=== PATIENT | female | born 1955 | race Caucasian/White ===

== ENCOUNTER 2021-09-19 09:48 | Observation (INO) ==
[2021-09-19] MEDS ORDERED: Ondansetron 4 MG/2 ML VIAL IVP ONE (11:55)
[2021-09-19] MEDS ORDERED: 0.9 % Sodium Chloride 1,000 ML IVC ONE ×2 (11:55→15:27)
[2021-09-19 13:21] LABS: Albumin 4.3 g/dL (3.5-5.7); Albumin/Globulin Ratio 1.1 (1.1-2.2); Bilirubin,Direct 0.2 mg/dL (0.0-0.2); Bilirubin,Indirect 0.5 mg/dL (0.0-1.0); Bilirubin,Total 0.7 mg/dL (0.3-1.0); Globulin 3.8 g/dL (2.4-3.5); Total Protein 8.1 g/dL (6.4-8.9)
[2021-09-19 13:24] LABS: Troponin I 0.04 ng/mL (< 0.04)
[2021-09-19] MEDS ORDERED: Isovue-370 500 ML BOTTLE IVP ONE (13:41)
[2021-09-19 14:41] LABS: Basophils % 0.4 %; Eosinophils % 0.2 %; Hematocrit 49.6 % (35.3-44.9); Hemoglobin 16.5 g/dL (11.5-15.4); Immature Granulocytes % 0.6 % (0-4); Lymphocytes # 1.2 K/mcL (0.6-4.6); Lymphocytes % 14.5 %; Mean Corpuscular HGB Conc 33.3 g/dL (31.6-35.5); Mean Corpuscular Hemoglobin 28.9 pg (28.0-33.3); Mean Corpuscular Volume 86.9 fL (83.0-100.0); Mean Platelet Volume 9.7 fL (9.4-12.4); Monocytes # 0.2 K/mcL (0.0-1.3); Monocytes % 2.7 %; Platelet Count 293 K/mcL (140-400); Red Blood Count 5.71 M/mcL (3.82-4.97); Red Cell Distribution Width 14.1 % (11.5-14.5); Segmented Neutrophils % 81.6 %; White Blood Count 8.5 K/mcL (4.3-11.1)
[2021-09-19 14:47] LABS: Calcium 9.8 mg/dL (8.6-10.3); Potassium 3.4 mEq/L (3.5-5.1)
[2021-09-19] MEDS ORDERED: Naloxone 0.4 MG/ML INJ IVP PRN (17:34)
[2021-09-19] MEDS ORDERED: Ondansetron 4 MG/2 ML VIAL IVP PRN (17:34)
[2021-09-19] MEDS ORDERED: Perflutren Lipid Microsphere 1.3 ML in 0.9 % Sodium Chloride 8.7 ML IVP PRN (17:38)
[2021-09-19] MEDS ORDERED: methylPREDNISolone 125 MG/2 ML VIAL IVP ONE (18:00)
[2021-09-19] MEDS ORDERED: cefTRIAXone 2,000 MG in Water for inj. (sterile) 20 ML IVP SCH (18:00)
[2021-09-19] MEDS ORDERED: *HR* Dextrose 50 % in Water (Syg) 50 ML SYRINGE IVP PRN (18:04)
[2021-09-19] MEDS ORDERED: Dextrose Gel 15 GM/37.5 ML TUBE PO PRN ×2 (18:04)
[2021-09-19] MEDS ORDERED: D5% in Water 1,000 ML IVC PRN (18:04)
[2021-09-19 18:13] LABS: Influenza A PCR Negative (Negative); Influenza B PCR Negative (Negative); Resp. Syncytial Virus PCR Negative (Negative)
[2021-09-19 18:28] LABS: SARS-CoV-2 by PCR (In House) Negative (Negative)
[2021-09-19 18:42] LABS: Magnesium 2.4 mg/dL (1.6-2.6)
[2021-09-19 18:43] LABS: Troponin I 0.03 ng/mL (< 0.04)
[2021-09-19 19:37] LABS: Estimated Average Glucose 140 mg/dl; Hemoglobin A1C 6.5 %
[2021-09-19] MEDS: Aspirin 81 MG TAB.CHEW PO SCH (20:27)
[2021-09-19] MEDS: cefTRIAXone 1,000 MG in 0.9 % Sodium Chloride Mini Bag 100 ML IVP SCH (20:28)
[2021-09-19] MEDS: Azithromycin 500 MG in D5% in Water 250 ML IVPB SCH (20:29)
[2021-09-19] MEDS: *HR* Heparin 5,000 UNIT/ML VIAL SQ SCH (22:21)
[2021-09-19] MEDS: MethylPREDNISolone 40 MG/ML VIAL IVP SCH (22:43)
[2021-09-20 00:29] LABS: Basophils % 0.4 %; Eosinophils % 0.6 %; Hematocrit 41.1 % (35.3-44.9); Immature Granulocytes % 0.7 % (0-4); Lymphocytes # 1.4 K/mcL (0.6-4.6); Lymphocytes % 19.6 %; Mean Corpuscular HGB Conc 35.3 g/dL (31.6-35.5); Mean Corpuscular Hemoglobin 30.1 pg (28.0-33.3); Mean Corpuscular Volume 85.4 fL (83.0-100.0); Mean Platelet Volume 9.3 fL (9.4-12.4); Monocytes # 0.3 K/mcL (0.0-1.3); Monocytes % 4.9 %; Neutrophils # 5.1 K/mcL (1.6-8.9); Platelet Count 255 K/mcL (140-400); Red Blood Count 4.81 M/mcL (3.82-4.97); Red Cell Distribution Width 13.9 % (11.5-14.5); Segmented Neutrophils % 73.8 %; White Blood Count 6.9 K/mcL (4.3-11.1)
[2021-09-20 00:39] LABS: Hemoglobin 14.5 g/dL (11.5-15.4)
[2021-09-20 00:43] LABS: BUN/Creatinine Ratio 27 (6-26); Blood Urea Nitrogen 23 mg/dL (8-23); Calcium 8.8 mg/dL (8.6-10.3); Carbon Dioxide 16 mEq/L (23-29); Chloride 100 mEq/L (98-107); Chol/HDL Ratio 5.4 (0-4.9); Cholesterol 177 mg/dL (< 200); Glucose 107 mg/dL (70-105); HDL Cholesterol 33 mg/dL (40-59); LDL Cholesterol,Calculated 124 mg/dL (< 100); Osmolality,Calculated 272 (280-300); Potassium 3.7 mEq/L (3.5-5.1); Sodium 129 mEq/L (136-145); Triglycerides 100 mg/dL (< 150); eGFR For African Americans > 60 (> 60); eGFR For Non-African Americans > 60 (> 60)
[2021-09-20 01:17] LABS: Bilirubin,Urine Negative (Negative); Blood,Urine Moderate (Negative); Clarity,Urine Clear (Clear); Color,Urine Light-Yellow (Yellow); Glucose,Urine (UA) Normal (Normal); Ketones,Urine 40 mg/dL (Negative); Leukocyte Esterase,Urine Negative (Negative); Nitrite,Urine Negative (Negative); Protein,Urine Trace mg/dL (Neg-Trace); RBC,Urine 15-30 per hpf (0-3); Specific Gravity,Urine > 1.030 (1.010-1.025); Urobilinogen,Urine Normal (Normal); WBC,Urine 0-3 per hpf (0-3)
[2021-09-20] MEDS: *HR* Heparin 5,000 UNIT/ML VIAL SQ SCH ×3 (04:44→20:33)
[2021-09-20] MEDS: Insulin LISPRO 300 UNITS/3 ML VIAL SUBQ SCH ×3 (08:17→16:36)
[2021-09-20] MEDS: Aspirin 81 MG TAB.CHEW PO SCH (08:23)
[2021-09-20] MEDS: MethylPREDNISolone 40 MG/ML VIAL IVP SCH ×2 (08:24→17:58)
[2021-09-20] MEDS: Pantoprazole 40 MG VIAL IVP SCH (08:24)
[2021-09-20] MEDS: Azithromycin 500 MG in D5% in Water 250 ML IVPB SCH (17:59)
[2021-09-20] MEDS: cefTRIAXone 1,000 MG in 0.9 % Sodium Chloride Mini Bag 100 ML IVP SCH (17:59)
[2021-09-21] MEDS: *HR* Heparin 5,000 UNIT/ML VIAL SQ SCH ×4 (04:17→21:05)
[2021-09-21] MEDS: MethylPREDNISolone 40 MG/ML VIAL IVP SCH (04:19)
[2021-09-21] MEDS: Insulin LISPRO 300 UNITS/3 ML VIAL SUBQ SCH ×3 (07:17→16:32)
[2021-09-21 07:19] LABS: Hematocrit 44.9 % (35.3-44.9); Hemoglobin 15.7 g/dL (11.5-15.4); Immature Granulocytes % 0.5 % (0-4); Lymphocytes % 12.1 %; Mean Corpuscular Volume 85.7 fL (83.0-100.0); Mean Platelet Volume 9.5 fL (9.4-12.4); Monocytes # 0.3 K/mcL (0.0-1.3); Monocytes % 3.3 %; Platelet Count 293 K/mcL (140-400); Red Blood Count 5.24 M/mcL (3.82-4.97); Red Cell Distribution Width 14.1 % (11.5-14.5); Segmented Neutrophils % 84.1 %; White Blood Count 8.3 K/mcL (4.3-11.1)
[2021-09-21 07:33] LABS: BUN/Creatinine Ratio 27 (6-26); Blood Urea Nitrogen 25 mg/dL (8-23); Calcium 9.2 mg/dL (8.6-10.3); Carbon Dioxide 20 mEq/L (23-29); Chloride 99 mEq/L (98-107); Glucose 135 mg/dL (70-105); Osmolality,Calculated 274 (280-300); Potassium 3.8 mEq/L (3.5-5.1); Sodium 129 mEq/L (136-145); eGFR For African Americans > 60 (> 60); eGFR For Non-African Americans 59 (> 60)
[2021-09-21] MEDS: Pantoprazole 40 MG VIAL IVP SCH (07:49)
[2021-09-21] MEDS: Aspirin 81 MG TAB.CHEW PO SCH (07:49)
[2021-09-21] MEDS ORDERED: Fluticasone Propionate Nasal 50 MCG/SPRAY BOTTLE NS PRN (14:56)
[2021-09-21] MEDS: Azithromycin 250 MG TABLET PO SCH (17:29)
[2021-09-21] MEDS ORDERED: cefTRIAXone 1,000 MG in 0.9 % Sodium Chloride Mini Bag 100 ML IVPB SCH (17:45)
[2021-09-22 06:51] LABS: Basophils % 0.1 %; Eosinophils # 0.1 K/mcL (0.0-0.6); Eosinophils % 0.7 %; Hematocrit 43.8 % (35.3-44.9); Hemoglobin 15.2 g/dL (11.5-15.4); Immature Granulocytes % 0.3 % (0-4); Lymphocytes # 2.9 K/mcL (0.6-4.6); Lymphocytes % 28.9 %; Mean Corpuscular HGB Conc 34.7 g/dL (31.6-35.5); Mean Corpuscular Hemoglobin 29.3 pg (28.0-33.3); Mean Corpuscular Volume 84.4 fL (83.0-100.0); Mean Platelet Volume 9.5 fL (9.4-12.4); Monocytes # 0.8 K/mcL (0.0-1.3); Monocytes % 7.8 %; Neutrophils # 6.2 K/mcL (1.6-8.9); Platelet Count 251 K/mcL (140-400); Red Blood Count 5.19 M/mcL (3.82-4.97); Red Cell Distribution Width 14.1 % (11.5-14.5); Segmented Neutrophils % 62.2 %
[2021-09-22 07:07] LABS: BUN/Creatinine Ratio 34 (6-26); Blood Urea Nitrogen 30 mg/dL (8-23); Calcium 8.9 mg/dL (8.6-10.3); Carbon Dioxide 19 mEq/L (23-29); Chloride 101 mEq/L (98-107); Glucose 100 mg/dL (70-105); Osmolality,Calculated 274 (280-300); Potassium 3.1 mEq/L (3.5-5.1); Sodium 129 mEq/L (136-145); eGFR For African Americans > 60 (> 60); eGFR For Non-African Americans > 60 (> 60)
[2021-09-22] MEDS: Aspirin 81 MG TAB.CHEW PO SCH (08:22)
[2021-09-22] MEDS: Insulin LISPRO 300 UNITS/3 ML VIAL SUBQ SCH ×3 (08:22→14:50)
[2021-09-22] MEDS ORDERED: predniSONE 20 MG TABLET PO SCH (09:00)
[2021-09-22 10:53] VITALS: BP 126/86; PULSE 71; TEMP 97.5; O2SAT 99
[2021-09-22] MEDS: Azithromycin 250 MG TABLET PO SCH (14:49)
[2021-09-22] MEDS: *HR* Heparin 5,000 UNIT/ML VIAL SQ SCH (14:50)
[2021-09-22] MEDS ORDERED: Cefdinir 300 MG CAPSULE PO SCH (21:00)
== END 2021-09-22 18:15 | disposition home or self-care (01) ==
LOC: 3BNU 09:48 → EMEROOARM 09:48 → SUATTDRO 17:59 → 3BNU 20:00
PROVIDERS: ADMIT Student in an Organized Health Care Education/Training Program; ATTEND General Practice

== ENCOUNTER 2021-09-27 12:34 | Inpatient (IN) ==
[2021-09-27 13:06] LABS: Basophils % 0.1 %; Immature Granulocytes % 1.1 % (0-4); Mean Platelet Volume 11.4 fL (9.4-12.4)
[2021-09-27 13:08] LABS: Hematocrit 48.3 % (35.3-44.9); Lymphocytes # 1.1 K/mcL (0.6-4.6); Lymphocytes % 14.6 %; Mean Corpuscular HGB Conc 35.2 g/dL (31.6-35.5); Mean Corpuscular Hemoglobin 29.5 pg (28.0-33.3); Mean Corpuscular Volume 83.7 fL (83.0-100.0); Monocytes # 0.5 K/mcL (0.0-1.3); Monocytes % 6.5 %; Neutrophils # 5.7 K/mcL (1.6-8.9); Platelet Count 82 K/mcL (140-400); Red Blood Count 5.77 M/mcL (3.82-4.97); Red Cell Distribution Width 14.8 % (11.5-14.5); Segmented Neutrophils % 77.7 %; White Blood Count 7.3 K/mcL (4.3-11.1)
[2021-09-27 13:18] LABS: Activated Partial Thrombo Time 47.4 Seconds (26.0-36.0)
[2021-09-27 13:23] LABS: Prothrombin Time 67.5 Seconds (9.4-12.1)
[2021-09-27 13:24] LABS: INR 6.1
[2021-09-27 13:25] LABS: Bacteria,Urine Few per hpf (None-Few); Bilirubin,Urine Negative (Negative); Blood,Urine Moderate (Negative); Clarity,Urine Clear (Clear); Color,Urine Yellow (Yellow); Glucose,Urine (UA) Normal (Normal); Hyaline Casts,Urine Few per lpf (None Seen); Ketones,Urine 20 mg/dL (Negative); Leukocyte Esterase,Urine Negative (Negative); Mucus,Urine Few per lpf (None-Few); Nitrite,Urine Negative (Negative); Protein,Urine Trace mg/dL (Neg-Trace); Specific Gravity,Urine 1.029 (1.010-1.025); Urobilinogen,Urine Normal (Normal)
[2021-09-27 13:26] LABS: Alanine Aminotransferase 10 Units/L (7-52); Albumin 3.4 g/dL (3.5-5.7); Albumin/Globulin Ratio 1.4 (1.1-2.2); Alkaline Phosphatase 77 Units/L (34-104); Aspartate Amino Transferase 21 Units/L (13-39); BUN/Creatinine Ratio 32 (6-26); Bilirubin,Direct 0.3 mg/dL (0.0-0.2); Bilirubin,Indirect 0.8 mg/dL (0.0-1.0); Bilirubin,Total 1.1 mg/dL (0.3-1.0); Blood Urea Nitrogen 40 mg/dL (8-23); Calcium 8.7 mg/dL (8.6-10.3); Carbon Dioxide 12 mEq/L (23-29); Chloride 106 mEq/L (98-107); Ethanol < 10 mg/dL (Less than 10); Globulin 2.5 g/dL (2.4-3.5); Glucose 160 mg/dL (70-105); Osmolality,Calculated 291 (280-300); Sodium 134 mEq/L (136-145); Total Protein 5.9 g/dL (6.4-8.9); eGFR For African Americans 52 (> 60); eGFR For Non-African Americans 43 (> 60)
[2021-09-27 13:37] LABS: Amphetamine Screen,Urine Negative ng/mL (Cutoff=1000); Barbiturate Screen,Urine Negative ng/mL (Cutoff=200); Benzodiazepines Screen,Urine Negative ng/mL (Cutoff=200); Cannabinoid Screen,Urine Negative ng/mL (Cutoff = 50); Cocaine Screen,Urine Negative ng/mL (Cutoff= 300); Opiate Screen,Urine Negative ng/mL (Cutoff=300); Phencyclidine Screen,Urine Negative ng/mL (Cutoff=25)
[2021-09-27] MEDS ORDERED: Isovue-370 500 ML BOTTLE IVP ONE (13:46)
[2021-09-27] MEDS ORDERED: 0.9 % Sodium Chloride 1,000 ML IVC ONE (16:44)
[2021-09-27 17:42] LABS: Acetaminophen < 10 mcg/mL (10-20); Lipase 40 Units/L (11-82); Salicylate < 2.5 mg/dL (15.0-30.0)
[2021-09-27] MEDS ORDERED: Naloxone 0.4 MG/ML INJ IVP PRN (18:10)
[2021-09-27 18:22] LABS: Chloride,Urine 23 mEq/L; Creatinine,Urine 182 mg/dL; Potassium,Urine 65.8 mEq/L; Sodium, Urine 30.7 mEq/L
[2021-09-27 19:08] LABS: Beta-Hydroxybutyric Acid 1.78 mmol/L (0.02-0.27)
[2021-09-27 19:21] LABS: Procalcitonin 0.26 ng/mL (0.00-0.15)
[2021-09-27 21:16] LABS: VBG HCO3 15 mEq/L (21-27); VBG PCO2 30 mmHg (41-51); VBG PH 7.32 pH Units (7.32-7.42); VBG PO2 36 mmHg (25-50)
[2021-09-27] MEDS: Thiamine (B-1) 100 MG in 0.9 % Sodium Chloride 50 ML IVPB SCH (21:20)
[2021-09-27 21:49] LABS: INR 7.2; Prothrombin Time 78.5 Seconds (9.4-12.1)
[2021-09-27] MEDS: Ringers Solution, Lactated 1,000 ML IVC ONE (22:30)
[2021-09-27] MEDS: D5% in 0.45% NACL 1,000 ML IVC SCH (23:39)
[2021-09-28] MEDS ORDERED: Dextrose Gel 15 GM/37.5 ML TUBE PO PRN ×2 (00:53)
[2021-09-28] MEDS ORDERED: D5% in Water 1,000 ML IVC PRN (00:53)
[2021-09-28] MEDS ORDERED: *HR* Dextrose 50 % in Water (Syg) 50 ML SYRINGE IVP PRN (00:53)
[2021-09-28] MEDS: Piperacillin/Tazobactam 3.375 GM in 0.9 % Sodium Chloride Mini Bag 100 ML IVPB SCH ×3 (00:57→16:03)
[2021-09-28 01:44] LABS: Acetaminophen < 10 mcg/mL (10-20); Salicylate < 2.5 mg/dL (15.0-30.0)
[2021-09-28 02:10] LABS: Folate 3.9 ng/mL (3.0-16.0)
[2021-09-28 04:07] LABS: ABG Base Excess -7 mEq/L (-2 to 3); ABG HCO3 17 mEq/L (21-27); ABG Oxygen Saturation 97 % (95-98); ABG PCO2 27 mmHg (35-45); ABG PH 7.39 pH Units (7.32-7.45); ABG PO2 88 mmHg (85-104); ABG TCO2 17 mEq/L (20-26)
[2021-09-28 06:04] LABS: Basophils % 0.2 %; Hematocrit 43.3 % (35.3-44.9); Red Cell Distribution Width 15.3 % (11.5-14.5)
[2021-09-28 06:06] LABS: Hemoglobin 14.5 g/dL (11.5-15.4); Immature Granulocytes % 0.9 % (0-4); Immature Platelets 6.1 % (1.1-6.1); Lymphocytes # 1.3 K/mcL (0.6-4.6); Lymphocytes % 14.6 %; Mean Corpuscular HGB Conc 33.5 g/dL (31.6-35.5); Mean Corpuscular Hemoglobin 29.6 pg (28.0-33.3); Mean Corpuscular Volume 88.4 fL (83.0-100.0); Mean Platelet Volume 11.5 fL (9.4-12.4); Monocytes # 0.5 K/mcL (0.0-1.3); Monocytes % 5.4 %; Neutrophils # 7.2 K/mcL (1.6-8.9); Platelet Count 70 K/mcL (140-400); Segmented Neutrophils % 78.9 %; White Blood Count 9.1 K/mcL (4.3-11.1)
[2021-09-28 06:20] LABS: Activated Partial Thrombo Time 49.4 Seconds (26.0-36.0)
[2021-09-28 06:28] LABS: Albumin/Globulin Ratio 1.6 (1.1-2.2); Bilirubin,Total 0.8 mg/dL (0.3-1.0); Calcium 8.1 mg/dL (8.6-10.3); Globulin 1.9 g/dL (2.4-3.5); Magnesium 2.6 mg/dL (1.6-2.6); Phosphorous 4.4 mg/dL (2.7-4.5); Potassium 4.2 mEq/L (3.5-5.1); Total Protein 4.9 g/dL (6.4-8.9)
[2021-09-28 06:38] LABS: INR 6.8
[2021-09-28 06:39] LABS: Prothrombin Time 75.2 Seconds (9.4-12.1)
[2021-09-28] MEDS ORDERED: *HR* Phytonadione 10 MG/ML AMPUL SQ ONE (08:02)
[2021-09-28] MEDS: Thiamine (B-1) 100 MG in 0.9 % Sodium Chloride 50 ML IVPB SCH (09:28)
[2021-09-28] MEDS ORDERED: Ringers Solution, Lactated 1,000 ML IVC ONE (10:38)
[2021-09-28] MEDS ORDERED: Ringers Solution, Lactated 1,000 ML ONE (12:43)
[2021-09-28] MEDS: D5% in 0.45% NACL 1,000 ML IVC SCH ×3 (12:48→21:14)
[2021-09-28] MEDS: Ringers Solution, Lactated 1,000 ML IVC ONE (12:58)
[2021-09-29] MEDS: Piperacillin/Tazobactam 3.375 GM in 0.9 % Sodium Chloride Mini Bag 100 ML IVPB SCH ×3 (00:22→11:00)
[2021-09-29 05:08] LABS: Eosinophils % 0.2 %; Hematocrit 31.3 % (35.3-44.9); Hemoglobin 10.1 g/dL (11.5-15.4); Immature Granulocytes % 0.9 % (0-4); Immature Platelets 6.5 % (1.1-6.1); Lymphocytes # 1.9 K/mcL (0.6-4.6); Lymphocytes % 28.4 %; Mean Corpuscular HGB Conc 32.3 g/dL (31.6-35.5); Mean Corpuscular Hemoglobin 28.9 pg (28.0-33.3); Mean Corpuscular Volume 89.4 fL (83.0-100.0); Monocytes # 0.4 K/mcL (0.0-1.3); Monocytes % 5.8 %; Neutrophils # 4.3 K/mcL (1.6-8.9); Segmented Neutrophils % 64.7 %; White Blood Count 6.6 K/mcL (4.3-11.1)
[2021-09-29 05:18] LABS: Platelet Count 44 K/mcL (140-400)
[2021-09-29 05:22] LABS: Activated Partial Thrombo Time 27.6 Seconds (26.0-36.0)
[2021-09-29 05:24] LABS: Prothrombin Time 13.9 Seconds (9.4-12.1)
[2021-09-29 05:25] LABS: INR 1.2
[2021-09-29 05:53] LABS: Albumin 2.3 g/dL (3.5-5.7); Albumin/Globulin Ratio 1.3 (1.1-2.2); Bilirubin,Total 0.6 mg/dL (0.3-1.0); Calcium 7.1 mg/dL (8.6-10.3); Globulin 1.8 g/dL (2.4-3.5); Magnesium 2.1 mg/dL (1.6-2.6); Phosphorous 2.5 mg/dL (2.7-4.5); Potassium 3.5 mEq/L (3.5-5.1); Total Protein 4.1 g/dL (6.4-8.9)
[2021-09-29] MEDS: D5% in 0.45% NACL 1,000 ML IVC SCH (06:01)
[2021-09-29] MEDS ORDERED: Sodium Bicarbonate 75 MEQ in D5% in Water 1,000 ML IVC SCH (07:30)
[2021-09-29] MEDS ORDERED: Potassium Chloride Elixir 20 MEQ/15 ML UDC PO ONE (09:40)
[2021-09-29 10:24] LABS: VBG HCO3 20 mEq/L (21-27); VBG PCO2 32 mmHg (41-51); VBG PO2 191 mmHg (25-50)
[2021-09-29] MEDS: Thiamine (B-1) 100 MG in 0.9 % Sodium Chloride 50 ML IVPB SCH (12:11)
[2021-09-29] MEDS: Folic Acid 1 MG TABLET PO SCH (12:11)
[2021-09-29] MEDS: Multivit/Ca/Min/Fe/FA 1 TAB TABLET PO SCH (12:11)
[2021-09-29] MEDS: Sodium Bicarbonate 150 MEQ in D5% in Water 1,000 ML IVC SCH (14:57)
[2021-09-29 20:23] LABS: Hepatitis B Surface Antigen Nonreactive (Nonreactive)
[2021-09-29 20:52] LABS: Hepatitis B Core IgM Nonreactive (Nonreactive)
[2021-09-29 20:53] LABS: Hepatitis A Antibody IgM Nonreactive (Nonreactive)
[2021-09-30 02:27] LABS: Eosinophils % 0.4 %; Hemoglobin 10.6 g/dL (11.5-15.4); Mean Corpuscular Hemoglobin 29.4 pg (28.0-33.3)
[2021-09-30 02:29] LABS: Basophils % 0.2 %; Hematocrit 31.6 % (35.3-44.9); Immature Granulocytes % 0.6 % (0-4); Immature Platelets 7.4 % (1.1-6.1); Lymphocytes # 1.3 K/mcL (0.6-4.6); Lymphocytes % 25.4 %; Mean Corpuscular HGB Conc 33.5 g/dL (31.6-35.5); Mean Corpuscular Volume 87.8 fL (83.0-100.0); Mean Platelet Volume 12.7 fL (9.4-12.4); Monocytes # 0.3 K/mcL (0.0-1.3); Monocytes % 5.9 %; Neutrophils # 3.4 K/mcL (1.6-8.9); Red Cell Distribution Width 14.5 % (11.5-14.5); Segmented Neutrophils % 67.5 %; White Blood Count 5.1 K/mcL (4.3-11.1)
[2021-09-30 02:30] LABS: Platelet Count 41 K/mcL (140-400)
[2021-09-30 02:45] LABS: Activated Partial Thrombo Time 27.2 Seconds (26.0-36.0); Alanine Aminotransferase 7 Units/L (7-52); Albumin 2.7 g/dL (3.5-5.7); Albumin/Globulin Ratio 1.4 (1.1-2.2); Alkaline Phosphatase 51 Units/L (34-104); Aspartate Amino Transferase 21 Units/L (13-39); BUN/Creatinine Ratio 19 (6-26); Bilirubin,Total 0.7 mg/dL (0.3-1.0); Blood Urea Nitrogen 15 mg/dL (8-23); Calcium 7.4 mg/dL (8.6-10.3); Carbon Dioxide 23 mEq/L (23-29); Chloride 109 mEq/L (98-107); Globulin 1.9 g/dL (2.4-3.5); Glucose 87 mg/dL (70-105); INR 1.1; Magnesium 1.8 mg/dL (1.6-2.6); Osmolality,Calculated 280 (280-300); Phosphorous 2.2 mg/dL (2.7-4.5); Potassium 3.4 mEq/L (3.5-5.1); Prothrombin Time 12.5 Seconds (9.4-12.1); Sodium 135 mEq/L (136-145); Total Protein 4.6 g/dL (6.4-8.9); eGFR For African Americans > 60 (> 60); eGFR For Non-African Americans > 60 (> 60)
[2021-09-30] MEDS: Sodium Bicarbonate 150 MEQ in D5% in Water 1,000 ML IVC SCH ×2 (06:59→08:23)
[2021-09-30] MEDS: Folic Acid 1 MG TABLET PO SCH (08:59)
[2021-09-30] MEDS: Multivit/Ca/Min/Fe/FA 1 TAB TABLET PO SCH (08:59)
[2021-09-30 09:44] LABS: Immature Reticulocyte % 11.4 % (11.0-38.0); Retculocyte # 0.01 M/mcL (0.05-0.10); Reticulocyte % 0.4 % (1.6-2.8)
[2021-09-30] MEDS: Thiamine (B-1) 100 MG in 0.9 % Sodium Chloride 50 ML IVPB SCH (11:12)
[2021-09-30] MEDS: Ergocalciferol (VIT D2) 50,000 UNIT (1.25MG) CAP PO SCH (13:41)
[2021-10-01] MEDS: Sodium Bicarbonate 150 MEQ in D5% in Water 1,000 ML IVC SCH (02:19)
[2021-10-01] MEDS: Thiamine (B-1) 100 MG TABLET PO SCH (08:29)
[2021-10-01] MEDS: Folic Acid 1 MG TABLET PO SCH (08:29)
[2021-10-01] MEDS: Multivit/Ca/Min/Fe/FA 1 TAB TABLET PO SCH (08:29)
[2021-10-01 10:00] LABS: Basophils % 0.3 %; Immature Granulocytes % 1.1 % (0-4)
[2021-10-01 10:02] LABS: Eosinophils % 0.5 %; Hematocrit 33.1 % (35.3-44.9); Hemoglobin 11.2 g/dL (11.5-15.4); Immature Platelets 11.3 % (1.1-6.1); Lymphocytes # 1.2 K/mcL (0.6-4.6); Lymphocytes % 33.6 %; Mean Corpuscular HGB Conc 33.8 g/dL (31.6-35.5); Mean Corpuscular Volume 85.8 fL (83.0-100.0); Mean Platelet Volume 10.8 fL (9.4-12.4); Monocytes # 0.3 K/mcL (0.0-1.3); Monocytes % 7.9 %; Neutrophils # 2.1 K/mcL (1.6-8.9); Red Blood Count 3.86 M/mcL (3.82-4.97); Red Cell Distribution Width 14.1 % (11.5-14.5); Segmented Neutrophils % 56.6 %; White Blood Count 3.7 K/mcL (4.3-11.1)
[2021-10-01 10:04] LABS: Platelet Count 46 K/mcL (140-400)
[2021-10-01 10:18] LABS: BUN/Creatinine Ratio 7 (6-26); Blood Urea Nitrogen 5 mg/dL (8-23); Calcium 8.1 mg/dL (8.6-10.3); Carbon Dioxide 28 mEq/L (23-29); Chloride 97 mEq/L (98-107); Glucose 101 mg/dL (70-105); Osmolality,Calculated 269 (280-300); Potassium 3.2 mEq/L (3.5-5.1); Sodium 131 mEq/L (136-145); eGFR For African Americans > 60 (> 60); eGFR For Non-African Americans > 60 (> 60)
[2021-10-01] MEDS: 0.9 % Sodium Chloride 1,000 ML IVC SCH (12:00)
[2021-10-01] MEDS: Potassium Effervescent 25 MEQ TABLET.EFF PO SCH ×2 (16:45→20:02)
[2021-10-02] MEDS: 0.9 % Sodium Chloride 1,000 ML IVC SCH ×2 (00:24→13:41)
[2021-10-02] MEDS: Folic Acid 1 MG TABLET PO SCH (10:12)
[2021-10-02] MEDS: Multivit/Ca/Min/Fe/FA 1 TAB TABLET PO SCH (10:13)
[2021-10-02] MEDS: Thiamine (B-1) 100 MG TABLET PO SCH (10:13)
[2021-10-02 10:58] LABS: Immature Granulocytes % 1.1 % (0-4)
[2021-10-02 11:00] LABS: Basophils % 0.3 %; Eosinophils # 0.1 K/mcL (0.0-0.6); Eosinophils % 1.9 %; Hematocrit 32.7 % (35.3-44.9); Lymphocytes # 1.2 K/mcL (0.6-4.6); Lymphocytes % 33.2 %; Mean Corpuscular HGB Conc 33.6 g/dL (31.6-35.5); Mean Corpuscular Hemoglobin 29.4 pg (28.0-33.3); Mean Corpuscular Volume 87.4 fL (83.0-100.0); Mean Platelet Volume 11.7 fL (9.4-12.4); Monocytes # 0.4 K/mcL (0.0-1.3); Monocytes % 9.9 %; Red Blood Count 3.74 M/mcL (3.82-4.97); Red Cell Distribution Width 14.5 % (11.5-14.5); Segmented Neutrophils % 53.6 %; White Blood Count 3.7 K/mcL (4.3-11.1)
[2021-10-02 11:02] LABS: Platelet Count 57 K/mcL (140-400)
[2021-10-02 11:25] LABS: BUN/Creatinine Ratio 7 (6-26); Blood Urea Nitrogen 5 mg/dL (8-23); Calcium 8.4 mg/dL (8.6-10.3); Carbon Dioxide 25 mEq/L (23-29); Chloride 103 mEq/L (98-107); Glucose 89 mg/dL (70-105); Magnesium 1.7 mg/dL (1.6-2.6); Osmolality,Calculated 277 (280-300); Potassium 3.7 mEq/L (3.5-5.1); Sodium 135 mEq/L (136-145); eGFR For African Americans > 60 (> 60); eGFR For Non-African Americans > 60 (> 60)
[2021-10-03] MEDS: 0.9 % Sodium Chloride 1,000 ML IVC SCH ×2 (02:32→16:08)
[2021-10-03 06:28] LABS: Eosinophils % 2.4 %; Mean Corpuscular Volume 87.4 fL (83.0-100.0)
[2021-10-03 06:30] LABS: Basophils % 0.5 %; Eosinophils # 0.1 K/mcL (0.0-0.6); Hematocrit 30.4 % (35.3-44.9); Hemoglobin 10.5 g/dL (11.5-15.4); Immature Granulocytes % 0.7 % (0-4); Immature Platelets 7.8 % (1.1-6.1); Lymphocytes # 1.5 K/mcL (0.6-4.6); Mean Corpuscular HGB Conc 34.5 g/dL (31.6-35.5); Mean Corpuscular Hemoglobin 30.2 pg (28.0-33.3); Mean Platelet Volume 11.9 fL (9.4-12.4); Monocytes # 0.4 K/mcL (0.0-1.3); Monocytes % 8.8 %; Neutrophils # 2.1 K/mcL (1.6-8.9); Red Blood Count 3.48 M/mcL (3.82-4.97); Red Cell Distribution Width 14.4 % (11.5-14.5); Segmented Neutrophils % 51.6 %; White Blood Count 4.1 K/mcL (4.3-11.1)
[2021-10-03 06:42] LABS: Platelet Count 72 K/mcL (140-400)
[2021-10-03 06:53] LABS: BUN/Creatinine Ratio 7 (6-26); Blood Urea Nitrogen 5 mg/dL (8-23); Calcium 8.1 mg/dL (8.6-10.3); Carbon Dioxide 23 mEq/L (23-29); Chloride 105 mEq/L (98-107); Glucose 78 mg/dL (70-105); Osmolality,Calculated 276 (280-300); Potassium 3.5 mEq/L (3.5-5.1); Sodium 135 mEq/L (136-145); eGFR For African Americans > 60 (> 60); eGFR For Non-African Americans > 60 (> 60)
[2021-10-03] MEDS: Magnesium Oxide 400 MG TABLET PO SCH ×2 (08:39→20:39)
[2021-10-03] MEDS: Multivit/Ca/Min/Fe/FA 1 TAB TABLET PO SCH (08:40)
[2021-10-03] MEDS: Thiamine (B-1) 100 MG TABLET PO SCH (08:40)
[2021-10-03] MEDS: Folic Acid 1 MG TABLET PO SCH (08:41)
[2021-10-03] MEDS ORDERED: Potassium Effervescent 25 MEQ TABLET.EFF PO ONE (14:50)
[2021-10-04] MEDS: 0.9 % Sodium Chloride 1,000 ML IVC SCH (02:53)
[2021-10-04] MEDS: Thiamine (B-1) 100 MG TABLET PO SCH (08:19)
[2021-10-04] MEDS: Cyanocobalamin (B-12) 1,000 MCG TABLET PO SCH (08:19)
[2021-10-04] MEDS: Folic Acid 1 MG TABLET PO SCH (08:19)
[2021-10-04] MEDS: Magnesium Oxide 400 MG TABLET PO SCH ×2 (08:20→19:33)
[2021-10-04] MEDS: Multivit/Ca/Min/Fe/FA 1 TAB TABLET PO SCH (08:20)
[2021-10-05 04:51] LABS: Alanine Aminotransferase 10 Units/L (7-52); Albumin 3.2 g/dL (3.5-5.7); Albumin/Globulin Ratio 1.3 (1.1-2.2); Alkaline Phosphatase 57 Units/L (34-104); Aspartate Amino Transferase 20 Units/L (13-39); BUN/Creatinine Ratio 7 (6-26); Bilirubin,Total 0.8 mg/dL (0.3-1.0); Blood Urea Nitrogen 5 mg/dL (8-23); Calcium 8.4 mg/dL (8.6-10.3); Carbon Dioxide 21 mEq/L (23-29); Chloride 105 mEq/L (98-107); Globulin 2.5 g/dL (2.4-3.5); Glucose 82 mg/dL (70-105); Magnesium 1.8 mg/dL (1.6-2.6); Osmolality,Calculated 276 (280-300); Potassium 3.6 mEq/L (3.5-5.1); Sodium 135 mEq/L (136-145); Total Protein 5.7 g/dL (6.4-8.9); eGFR For African Americans > 60 (> 60); eGFR For Non-African Americans > 60 (> 60)
[2021-10-05 05:16] LABS: INR 1.2; Prothrombin Time 13.1 Seconds (9.4-12.1)
[2021-10-05] MEDS: 0.9 % Sodium Chloride 1,000 ML IVC SCH ×2 (05:32)
[2021-10-05 06:42] LABS: Basophils % 0.5 %; Eosinophils # 0.1 K/mcL (0.0-0.6); Eosinophils % 1.6 %; Hematocrit 31.1 % (35.3-44.9); Hemoglobin 10.3 g/dL (11.5-15.4); Immature Granulocytes % 0.7 % (0-4); Lymphocytes # 1.2 K/mcL (0.6-4.6); Lymphocytes % 28.4 %; Mean Corpuscular HGB Conc 33.1 g/dL (31.6-35.5); Mean Corpuscular Hemoglobin 28.5 pg (28.0-33.3); Mean Corpuscular Volume 86.1 fL (83.0-100.0); Mean Platelet Volume 10.3 fL (9.4-12.4); Monocytes # 0.4 K/mcL (0.0-1.3); Monocytes % 8.5 %; Neutrophils # 2.6 K/mcL (1.6-8.9); Platelet Count 128 K/mcL (140-400); Red Blood Count 3.61 M/mcL (3.82-4.97); Red Cell Distribution Width 14.4 % (11.5-14.5); Segmented Neutrophils % 60.3 %; White Blood Count 4.4 K/mcL (4.3-11.1)
[2021-10-05] MEDS: Cyanocobalamin (B-12) 1,000 MCG TABLET PO SCH ×2 (08:14→08:30)
[2021-10-05] MEDS: Multivit/Ca/Min/Fe/FA 1 TAB TABLET PO SCH ×2 (08:14→08:30)
[2021-10-05] MEDS: Thiamine (B-1) 100 MG TABLET PO SCH ×2 (08:14→08:30)
[2021-10-05] MEDS: Magnesium Oxide 400 MG TABLET PO SCH ×3 (08:14→20:20)
[2021-10-05] MEDS: Folic Acid 1 MG TABLET PO SCH ×2 (08:14→08:30)
[2021-10-05] MEDS: QUEtiapine Fumarate 25 MG TABLET PO SCH (20:20)
[2021-10-06] MEDS: 0.9 % Sodium Chloride 1,000 ML IVC SCH ×2 (03:47→18:15)
[2021-10-06] MEDS ORDERED: Fluticasone Propionate Nasal 50 MCG/SPRAY BOTTLE NS PRN (07:11)
[2021-10-06] MEDS: Cyanocobalamin (B-12) 1,000 MCG TABLET PO SCH (10:24)
[2021-10-06] MEDS: Magnesium Oxide 400 MG TABLET PO SCH ×2 (10:24→19:57)
[2021-10-06] MEDS: Multivit/Ca/Min/Fe/FA 1 TAB TABLET PO SCH (10:25)
[2021-10-06] MEDS: Thiamine (B-1) 100 MG TABLET PO SCH (10:25)
[2021-10-06] MEDS: Folic Acid 1 MG TABLET PO SCH (10:27)
[2021-10-06] MEDS: QUEtiapine Fumarate 25 MG TABLET PO SCH (19:57)
[2021-10-07 01:02] LABS: Basophils % 0.4 %; Eosinophils % 0.7 %; Hematocrit 32.2 % (35.3-44.9); Immature Granulocytes % 0.6 % (0-4); Lymphocytes # 1.5 K/mcL (0.6-4.6); Lymphocytes % 28.1 %; Mean Corpuscular HGB Conc 34.2 g/dL (31.6-35.5); Mean Corpuscular Hemoglobin 29.7 pg (28.0-33.3); Mean Platelet Volume 10.2 fL (9.4-12.4); Monocytes # 0.4 K/mcL (0.0-1.3); Monocytes % 7.4 %; Neutrophils # 3.4 K/mcL (1.6-8.9); Platelet Count 174 K/mcL (140-400); Red Cell Distribution Width 14.4 % (11.5-14.5); Segmented Neutrophils % 62.8 %; White Blood Count 5.4 K/mcL (4.3-11.1)
[2021-10-07 01:23] LABS: BUN/Creatinine Ratio 6 (6-26); Blood Urea Nitrogen 4 mg/dL (8-23); Calcium 8.4 mg/dL (8.6-10.3); Carbon Dioxide 21 mEq/L (23-29); Chloride 105 mEq/L (98-107); Glucose 82 mg/dL (70-105); Magnesium 1.9 mg/dL (1.6-2.6); Osmolality,Calculated 276 (280-300); Potassium 3.1 mEq/L (3.5-5.1); Sodium 135 mEq/L (136-145); eGFR For African Americans > 60 (> 60); eGFR For Non-African Americans > 60 (> 60)
[2021-10-07] MEDS: 0.9 % Sodium Chloride 1,000 ML IVC SCH ×2 (07:31→17:10)
[2021-10-07] MEDS ORDERED: Potassium Chloride Elixir 20 MEQ/15 ML UDC PO ONE ×2 (07:51→13:35)
[2021-10-07] MEDS: Cyanocobalamin (B-12) 1,000 MCG TABLET PO SCH (08:09)
[2021-10-07] MEDS: Thiamine (B-1) 100 MG TABLET PO SCH (08:09)
[2021-10-07] MEDS: Magnesium Oxide 400 MG TABLET PO SCH ×3 (08:09→21:04)
[2021-10-07] MEDS: Multivit/Ca/Min/Fe/FA 1 TAB TABLET PO SCH (08:10)
[2021-10-07] MEDS: Folic Acid 1 MG TABLET PO SCH (08:11)
[2021-10-07] MEDS: Ergocalciferol (VIT D2) 50,000 UNIT (1.25MG) CAP PO SCH (14:31)
[2021-10-07] MEDS: QUEtiapine Fumarate 25 MG TABLET PO SCH ×2 (20:32→21:04)
[2021-10-08] MEDS: Multivit/Ca/Min/Fe/FA 1 TAB TABLET PO SCH (08:04)
[2021-10-08] MEDS: Folic Acid 1 MG TABLET PO SCH (08:04)
[2021-10-08] MEDS: Cyanocobalamin (B-12) 1,000 MCG TABLET PO SCH (08:05)
[2021-10-08] MEDS: Magnesium Oxide 400 MG TABLET PO SCH ×2 (08:05→21:28)
[2021-10-08] MEDS: Thiamine (B-1) 100 MG TABLET PO SCH (08:05)
[2021-10-08] MEDS: Megestrol Acetate 400 MG/10 ML UDC PO SCH (17:59)
[2021-10-08] MEDS: QUEtiapine Fumarate 25 MG TABLET PO SCH (21:27)
[2021-10-09] MEDS: Thiamine (B-1) 100 MG TABLET PO SCH (07:58)
[2021-10-09] MEDS: Megestrol Acetate 400 MG/10 ML UDC PO SCH (07:58)
[2021-10-09] MEDS: QUEtiapine Fumarate 25 MG TABLET PO SCH ×2 (07:58→19:33)
[2021-10-09] MEDS: Magnesium Oxide 400 MG TABLET PO SCH ×2 (07:58→19:33)
[2021-10-09] MEDS: Cyanocobalamin (B-12) 1,000 MCG TABLET PO SCH (07:58)
[2021-10-09] MEDS: Multivit/Ca/Min/Fe/FA 1 TAB TABLET PO SCH (07:59)
[2021-10-09] MEDS: Folic Acid 1 MG TABLET PO SCH (08:00)
[2021-10-09 14:19] LABS: BUN/Creatinine Ratio 14 (6-26); Blood Urea Nitrogen 11 mg/dL (8-23); Calcium 9.6 mg/dL (8.6-10.3); Carbon Dioxide 23 mEq/L (23-29); Chloride 105 mEq/L (98-107); Glucose 88 mg/dL (70-105); Osmolality,Calculated 281 (280-300); Potassium 3.7 mEq/L (3.5-5.1); Sodium 136 mEq/L (136-145); eGFR For African Americans > 60 (> 60); eGFR For Non-African Americans > 60 (> 60)
[2021-10-10] MEDS: Folic Acid 1 MG TABLET PO SCH (07:42)
[2021-10-10] MEDS: Multivit/Ca/Min/Fe/FA 1 TAB TABLET PO SCH (07:42)
[2021-10-10] MEDS: Megestrol Acetate 400 MG/10 ML UDC PO SCH (07:42)
[2021-10-10] MEDS: Cyanocobalamin (B-12) 1,000 MCG TABLET PO SCH (07:43)
[2021-10-10] MEDS: Thiamine (B-1) 100 MG TABLET PO SCH (07:43)
[2021-10-10] MEDS: QUEtiapine Fumarate 25 MG TABLET PO SCH ×2 (07:43→21:59)
[2021-10-10] MEDS: Magnesium Oxide 400 MG TABLET PO SCH ×2 (07:43→21:58)
[2021-10-11] MEDS: Megestrol Acetate 400 MG/10 ML UDC PO SCH (10:00)
[2021-10-11] MEDS: Folic Acid 1 MG TABLET PO SCH (10:00)
[2021-10-11] MEDS: Thiamine (B-1) 100 MG TABLET PO SCH (10:01)
[2021-10-11] MEDS: Magnesium Oxide 400 MG TABLET PO SCH ×2 (10:01→20:37)
[2021-10-11] MEDS: Multivit/Ca/Min/Fe/FA 1 TAB TABLET PO SCH (10:01)
[2021-10-11] MEDS: QUEtiapine Fumarate 25 MG TABLET PO SCH ×2 (10:01→20:37)
[2021-10-11] MEDS: Cyanocobalamin (B-12) 1,000 MCG TABLET PO SCH (10:01)
[2021-10-12] MEDS ORDERED: Haloperidol Lactate 5 MG/ML VIAL IM ONE (00:15)
[2021-10-12] MEDS: Folic Acid 1 MG TABLET PO SCH (12:43)
[2021-10-12] MEDS: Megestrol Acetate 400 MG/10 ML UDC PO SCH (12:43)
[2021-10-12] MEDS: Magnesium Oxide 400 MG TABLET PO SCH ×2 (12:43→21:21)
[2021-10-12] MEDS: Multivit/Ca/Min/Fe/FA 1 TAB TABLET PO SCH (12:43)
[2021-10-12] MEDS: QUEtiapine Fumarate 25 MG TABLET PO SCH ×2 (12:43→21:21)
[2021-10-12] MEDS: Cyanocobalamin (B-12) 1,000 MCG TABLET PO SCH (12:43)
[2021-10-12] MEDS: Thiamine (B-1) 100 MG TABLET PO SCH (12:43)
[2021-10-13] MEDS: Folic Acid 1 MG TABLET PO SCH (09:20)
[2021-10-13] MEDS: Cyanocobalamin (B-12) 1,000 MCG TABLET PO SCH (09:20)
[2021-10-13] MEDS: Multivit/Ca/Min/Fe/FA 1 TAB TABLET PO SCH (09:20)
[2021-10-13] MEDS: Megestrol Acetate 400 MG/10 ML UDC PO SCH (09:20)
[2021-10-13] MEDS: Thiamine (B-1) 100 MG TABLET PO SCH (09:20)
[2021-10-13] MEDS: QUEtiapine Fumarate 25 MG TABLET PO SCH ×2 (09:20→20:18)
[2021-10-13] MEDS: Magnesium Oxide 400 MG TABLET PO SCH ×2 (09:21→20:18)
[2021-10-14] MEDS: Megestrol Acetate 400 MG/10 ML UDC PO SCH (08:12)
[2021-10-14] MEDS: Magnesium Oxide 400 MG TABLET PO SCH ×2 (08:12→21:22)
[2021-10-14] MEDS: Multivit/Ca/Min/Fe/FA 1 TAB TABLET PO SCH (08:13)
[2021-10-14] MEDS: Folic Acid 1 MG TABLET PO SCH (08:13)
[2021-10-14] MEDS: Cyanocobalamin (B-12) 1,000 MCG TABLET PO SCH (08:13)
[2021-10-14] MEDS: QUEtiapine Fumarate 25 MG TABLET PO SCH ×2 (08:13→21:22)
[2021-10-14] MEDS: Thiamine (B-1) 100 MG TABLET PO SCH (08:13)
[2021-10-14] MEDS: Ergocalciferol (VIT D2) 50,000 UNIT (1.25MG) CAP PO SCH (12:33)
[2021-10-15] MEDS: Megestrol Acetate 400 MG/10 ML UDC PO SCH (08:08)
[2021-10-15] MEDS: QUEtiapine Fumarate 25 MG TABLET PO SCH ×2 (08:08→21:21)
[2021-10-15] MEDS: Thiamine (B-1) 100 MG TABLET PO SCH (08:11)
[2021-10-15] MEDS: Multivit/Ca/Min/Fe/FA 1 TAB TABLET PO SCH (08:11)
[2021-10-15] MEDS: Folic Acid 1 MG TABLET PO SCH (08:12)
[2021-10-15] MEDS: Cyanocobalamin (B-12) 1,000 MCG TABLET PO SCH (08:14)
[2021-10-15] MEDS: Magnesium Oxide 400 MG TABLET PO SCH ×2 (08:15→21:21)
[2021-10-16] MEDS: Cyanocobalamin (B-12) 1,000 MCG TABLET PO SCH (09:03)
[2021-10-16] MEDS: QUEtiapine Fumarate 25 MG TABLET PO SCH ×2 (09:03→20:59)
[2021-10-16] MEDS: Folic Acid 1 MG TABLET PO SCH (09:04)
[2021-10-16] MEDS: Multivit/Ca/Min/Fe/FA 1 TAB TABLET PO SCH (09:04)
[2021-10-16] MEDS: Magnesium Oxide 400 MG TABLET PO SCH ×2 (09:04→20:59)
[2021-10-16] MEDS: Megestrol Acetate 400 MG/10 ML UDC PO SCH (09:04)
[2021-10-16] MEDS: Thiamine (B-1) 100 MG TABLET PO SCH (09:05)
[2021-10-16] MEDS: Acetaminophen 325 MG TABLET PO PRN (18:49)
[2021-10-17] MEDS: Folic Acid 1 MG TABLET PO SCH (08:36)
[2021-10-17] MEDS: Multivit/Ca/Min/Fe/FA 1 TAB TABLET PO SCH (08:36)
[2021-10-17] MEDS: Megestrol Acetate 400 MG/10 ML UDC PO SCH (08:37)
[2021-10-17] MEDS: Thiamine (B-1) 100 MG TABLET PO SCH (08:37)
[2021-10-17] MEDS: Magnesium Oxide 400 MG TABLET PO SCH ×2 (08:37→21:50)
[2021-10-17] MEDS: QUEtiapine Fumarate 25 MG TABLET PO SCH ×2 (08:37→21:50)
[2021-10-17] MEDS: Cyanocobalamin (B-12) 1,000 MCG TABLET PO SCH (08:37)
[2021-10-18] MEDS: Multivit/Ca/Min/Fe/FA 1 TAB TABLET PO SCH (08:29)
[2021-10-18] MEDS: Magnesium Oxide 400 MG TABLET PO SCH ×2 (08:29→21:24)
[2021-10-18] MEDS: Cyanocobalamin (B-12) 1,000 MCG TABLET PO SCH (08:30)
[2021-10-18] MEDS: Thiamine (B-1) 100 MG TABLET PO SCH (08:30)
[2021-10-18] MEDS: Megestrol Acetate 400 MG/10 ML UDC PO SCH (08:30)
[2021-10-18] MEDS: QUEtiapine Fumarate 25 MG TABLET PO SCH ×2 (08:30→21:25)
[2021-10-18] MEDS: Folic Acid 1 MG TABLET PO SCH (08:30)
[2021-10-19] MEDS: Magnesium Oxide 400 MG TABLET PO SCH ×3 (09:17→20:06)
[2021-10-19] MEDS: QUEtiapine Fumarate 25 MG TABLET PO SCH ×2 (09:17→20:06)
[2021-10-19] MEDS: Multivit/Ca/Min/Fe/FA 1 TAB TABLET PO SCH ×2 (09:17→09:26)
[2021-10-19] MEDS: Folic Acid 1 MG TABLET PO SCH ×2 (09:18→09:26)
[2021-10-19] MEDS: Megestrol Acetate 400 MG/10 ML UDC PO SCH ×2 (09:18→09:26)
[2021-10-19] MEDS: Thiamine (B-1) 100 MG TABLET PO SCH ×2 (09:18→09:26)
[2021-10-19] MEDS: Cyanocobalamin (B-12) 1,000 MCG TABLET PO SCH ×2 (09:19→09:26)
[2021-10-19] MEDS: *HR* LORazepam 1 MG TABLET PO PRN ×2 (11:52→20:06)
[2021-10-20] MEDS: Megestrol Acetate 400 MG/10 ML UDC PO SCH (09:37)
[2021-10-20] MEDS: Multivit/Ca/Min/Fe/FA 1 TAB TABLET PO SCH (09:40)
[2021-10-20] MEDS: Cyanocobalamin (B-12) 1,000 MCG TABLET PO SCH (09:40)
[2021-10-20] MEDS: QUEtiapine Fumarate 25 MG TABLET PO SCH ×2 (09:40→21:49)
[2021-10-20] MEDS: Magnesium Oxide 400 MG TABLET PO SCH ×2 (09:41→21:59)
[2021-10-20] MEDS: Folic Acid 1 MG TABLET PO SCH (09:41)
[2021-10-20] MEDS: Thiamine (B-1) 100 MG TABLET PO SCH (09:41)
[2021-10-21] MEDS: QUEtiapine Fumarate 25 MG TABLET PO SCH (08:51)
[2021-10-21] MEDS: Cholecalciferol (D-3) 1,000 UNIT (25MCG) TABLET PO SCH (08:53)
[2021-10-21] MEDS: Magnesium Oxide 400 MG TABLET PO SCH ×2 (08:53→19:43)
[2021-10-21] MEDS: Multivit/Ca/Min/Fe/FA 1 TAB TABLET PO SCH (08:53)
[2021-10-21] MEDS: Folic Acid 1 MG TABLET PO SCH (08:53)
[2021-10-21] MEDS: Cyanocobalamin (B-12) 1,000 MCG TABLET PO SCH (08:54)
[2021-10-21] MEDS: Thiamine (B-1) 100 MG TABLET PO SCH (08:54)
[2021-10-21] MEDS: Megestrol Acetate 400 MG/10 ML UDC PO SCH (08:54)
[2021-10-21] MEDS: Ergocalciferol (VIT D2) 50,000 UNIT (1.25MG) CAP PO SCH (13:39)
[2021-10-21] MEDS: *HR* LORazepam 1 MG TABLET PO PRN (16:10)
[2021-10-22] MEDS: Cyanocobalamin (B-12) 1,000 MCG TABLET PO SCH (08:03)
[2021-10-22] MEDS: Thiamine (B-1) 100 MG TABLET PO SCH (08:04)
[2021-10-22] MEDS: Cholecalciferol (D-3) 1,000 UNIT (25MCG) TABLET PO SCH (08:04)
[2021-10-22] MEDS: Multivit/Ca/Min/Fe/FA 1 TAB TABLET PO SCH (08:04)
[2021-10-22] MEDS: Megestrol Acetate 400 MG/10 ML UDC PO SCH (08:04)
[2021-10-22] MEDS: Magnesium Oxide 400 MG TABLET PO SCH ×2 (08:04→19:48)
[2021-10-22] MEDS: Folic Acid 1 MG TABLET PO SCH (08:04)
[2021-10-23] MEDS: Thiamine (B-1) 100 MG TABLET PO SCH (07:16)
[2021-10-23] MEDS: Multivit/Ca/Min/Fe/FA 1 TAB TABLET PO SCH (07:16)
[2021-10-23] MEDS: Megestrol Acetate 400 MG/10 ML UDC PO SCH (07:16)
[2021-10-23] MEDS: Cyanocobalamin (B-12) 1,000 MCG TABLET PO SCH (07:16)
[2021-10-23] MEDS: Cholecalciferol (D-3) 1,000 UNIT (25MCG) TABLET PO SCH (07:17)
[2021-10-23] MEDS: Magnesium Oxide 400 MG TABLET PO SCH ×2 (07:17→19:47)
[2021-10-23] MEDS: Folic Acid 1 MG TABLET PO SCH (07:17)
[2021-10-23] MEDS: *HR* LORazepam 1 MG TABLET PO PRN (19:47)
[2021-10-24] MEDS: Cholecalciferol (D-3) 1,000 UNIT (25MCG) TABLET PO SCH (10:09)
[2021-10-24] MEDS: Megestrol Acetate 400 MG/10 ML UDC PO SCH (10:09)
[2021-10-24] MEDS: Folic Acid 1 MG TABLET PO SCH (10:09)
[2021-10-24] MEDS: Magnesium Oxide 400 MG TABLET PO SCH ×2 (10:09→21:57)
[2021-10-24] MEDS: Thiamine (B-1) 100 MG TABLET PO SCH (10:09)
[2021-10-24] MEDS: Multivit/Ca/Min/Fe/FA 1 TAB TABLET PO SCH (10:09)
[2021-10-24] MEDS: Cyanocobalamin (B-12) 1,000 MCG TABLET PO SCH (10:09)
[2021-10-24] MEDS: *HR* LORazepam 1 MG TABLET PO PRN ×2 (16:01→17:18)
[2021-10-25] MEDS: Magnesium Oxide 400 MG TABLET PO SCH ×3 (01:25→19:54)
[2021-10-25] MEDS: Megestrol Acetate 400 MG/10 ML UDC PO SCH (08:18)
[2021-10-25] MEDS: Folic Acid 1 MG TABLET PO SCH (08:23)
[2021-10-25] MEDS: Thiamine (B-1) 100 MG TABLET PO SCH (08:23)
[2021-10-25] MEDS: Multivit/Ca/Min/Fe/FA 1 TAB TABLET PO SCH (08:23)
[2021-10-25] MEDS: Cyanocobalamin (B-12) 1,000 MCG TABLET PO SCH (08:24)
[2021-10-25] MEDS: Cholecalciferol (D-3) 1,000 UNIT (25MCG) TABLET PO SCH (08:24)
[2021-10-26] MEDS: Multivit/Ca/Min/Fe/FA 1 TAB TABLET PO SCH (08:15)
[2021-10-26] MEDS: Folic Acid 1 MG TABLET PO SCH (08:15)
[2021-10-26] MEDS: Thiamine (B-1) 100 MG TABLET PO SCH (08:15)
[2021-10-26] MEDS: Cyanocobalamin (B-12) 1,000 MCG TABLET PO SCH (08:15)
[2021-10-26] MEDS: Magnesium Oxide 400 MG TABLET PO SCH ×2 (08:15→20:01)
[2021-10-26] MEDS: Cholecalciferol (D-3) 1,000 UNIT (25MCG) TABLET PO SCH (08:15)
[2021-10-26] MEDS: Megestrol Acetate 400 MG/10 ML UDC PO SCH (08:15)
[2021-10-27] MEDS: Folic Acid 1 MG TABLET PO SCH (08:07)
[2021-10-27] MEDS: Cholecalciferol (D-3) 1,000 UNIT (25MCG) TABLET PO SCH (08:07)
[2021-10-27] MEDS: Cyanocobalamin (B-12) 1,000 MCG TABLET PO SCH (08:07)
[2021-10-27] MEDS: Megestrol Acetate 400 MG/10 ML UDC PO SCH (08:07)
[2021-10-27] MEDS: Multivit/Ca/Min/Fe/FA 1 TAB TABLET PO SCH (08:07)
[2021-10-27] MEDS: Thiamine (B-1) 100 MG TABLET PO SCH (08:07)
[2021-10-27] MEDS: Magnesium Oxide 400 MG TABLET PO SCH ×2 (08:07→19:45)
[2021-10-28] MEDS: Folic Acid 1 MG TABLET PO SCH (09:34)
[2021-10-28] MEDS: Magnesium Oxide 400 MG TABLET PO SCH ×2 (09:34→21:01)
[2021-10-28] MEDS: Megestrol Acetate 400 MG/10 ML UDC PO SCH (09:35)
[2021-10-28] MEDS: Thiamine (B-1) 100 MG TABLET PO SCH (09:35)
[2021-10-28] MEDS: Multivit/Ca/Min/Fe/FA 1 TAB TABLET PO SCH (09:35)
[2021-10-28] MEDS: Cholecalciferol (D-3) 1,000 UNIT (25MCG) TABLET PO SCH (09:36)
[2021-10-28] MEDS: Cyanocobalamin (B-12) 1,000 MCG TABLET PO SCH (09:36)
[2021-10-28] MEDS: Ergocalciferol (VIT D2) 50,000 UNIT (1.25MG) CAP PO SCH (14:04)
[2021-10-29] MEDS ORDERED: PALIPERIDONE PALMITATE 234 MG IM SCH (08:30)
[2021-10-29] MEDS: Megestrol Acetate 400 MG/10 ML UDC PO SCH (10:00)
[2021-10-29] MEDS: Folic Acid 1 MG TABLET PO SCH (10:00)
[2021-10-29] MEDS: Magnesium Oxide 400 MG TABLET PO SCH ×2 (10:00→20:55)
[2021-10-29] MEDS: Multivit/Ca/Min/Fe/FA 1 TAB TABLET PO SCH (10:01)
[2021-10-29] MEDS: Thiamine (B-1) 100 MG TABLET PO SCH (10:01)
[2021-10-29] MEDS: Cyanocobalamin (B-12) 1,000 MCG TABLET PO SCH (10:01)
[2021-10-29] MEDS: Cholecalciferol (D-3) 1,000 UNIT (25MCG) TABLET PO SCH (10:01)
[2021-10-30] MEDS ORDERED: *HR* Enoxaparin 40 MG/0.4 ML SYRINGE SQ SCH (06:00)
[2021-10-30] MEDS: Megestrol Acetate 400 MG/10 ML UDC PO SCH (09:29)
[2021-10-30] MEDS: Cholecalciferol (D-3) 1,000 UNIT (25MCG) TABLET PO SCH (09:53)
[2021-10-30] MEDS: Cyanocobalamin (B-12) 1,000 MCG TABLET PO SCH (09:53)
[2021-10-30] MEDS: Folic Acid 1 MG TABLET PO SCH (09:53)
[2021-10-30] MEDS: Magnesium Oxide 400 MG TABLET PO SCH ×2 (09:53→21:23)
[2021-10-30] MEDS: Multivit/Ca/Min/Fe/FA 1 TAB TABLET PO SCH (09:53)
[2021-10-30] MEDS: Thiamine (B-1) 100 MG TABLET PO SCH (09:53)
[2021-10-31] MEDS: Multivit/Ca/Min/Fe/FA 1 TAB TABLET PO SCH (09:34)
[2021-10-31] MEDS: Magnesium Oxide 400 MG TABLET PO SCH ×2 (09:34→20:59)
[2021-10-31] MEDS: Cholecalciferol (D-3) 1,000 UNIT (25MCG) TABLET PO SCH (09:34)
[2021-10-31] MEDS: Thiamine (B-1) 100 MG TABLET PO SCH (09:34)
[2021-10-31] MEDS: Folic Acid 1 MG TABLET PO SCH (09:34)
[2021-10-31] MEDS: Cyanocobalamin (B-12) 1,000 MCG TABLET PO SCH (09:34)
[2021-10-31] MEDS: Megestrol Acetate 400 MG/10 ML UDC PO SCH (09:40)
[2021-11-01] MEDS: Multivit/Ca/Min/Fe/FA 1 TAB TABLET PO SCH (08:35)
[2021-11-01] MEDS: Cyanocobalamin (B-12) 1,000 MCG TABLET PO SCH (08:35)
[2021-11-01] MEDS: Thiamine (B-1) 100 MG TABLET PO SCH (08:35)
[2021-11-01] MEDS: Magnesium Oxide 400 MG TABLET PO SCH ×2 (08:35→18:41)
[2021-11-01] MEDS: Megestrol Acetate 400 MG/10 ML UDC PO SCH (08:35)
[2021-11-01] MEDS: Cholecalciferol (D-3) 1,000 UNIT (25MCG) TABLET PO SCH (08:35)
[2021-11-01] MEDS: Folic Acid 1 MG TABLET PO SCH (08:35)
[2021-11-01] MEDS: Acetaminophen 325 MG TABLET PO PRN (18:07)
[2021-11-01] MEDS: *HR* LORazepam 1 MG TABLET PO PRN (18:40)
[2021-11-02] MEDS: Megestrol Acetate 400 MG/10 ML UDC PO SCH (10:26)
[2021-11-02] MEDS: Magnesium Oxide 400 MG TABLET PO SCH ×2 (10:26→20:00)
[2021-11-02] MEDS: Cholecalciferol (D-3) 1,000 UNIT (25MCG) TABLET PO SCH (10:26)
[2021-11-03] MEDS: Cholecalciferol (D-3) 1,000 UNIT (25MCG) TABLET PO SCH (08:04)
[2021-11-03] MEDS: Magnesium Oxide 400 MG TABLET PO SCH ×2 (08:04→20:07)
[2021-11-03] MEDS: Megestrol Acetate 400 MG/10 ML UDC PO SCH (08:04)
[2021-11-04] MEDS: Magnesium Oxide 400 MG TABLET PO SCH ×2 (12:11→19:34)
[2021-11-04] MEDS: Megestrol Acetate 400 MG/10 ML UDC PO SCH (12:11)
[2021-11-04] MEDS: Cholecalciferol (D-3) 1,000 UNIT (25MCG) TABLET PO SCH (12:11)
[2021-11-05] MEDS ORDERED: *HR* LORazepam 2 MG/ML VIAL IVP ONE (05:21)
[2021-11-05] MEDS ORDERED: *HR* LORazepam 1 MG TABLET PO ONE (05:23)
[2021-11-05] MEDS: Cholecalciferol (D-3) 1,000 UNIT (25MCG) TABLET PO SCH (09:50)
[2021-11-05] MEDS: Magnesium Oxide 400 MG TABLET PO SCH ×2 (09:50→19:53)
[2021-11-06] MEDS: Cholecalciferol (D-3) 1,000 UNIT (25MCG) TABLET PO SCH (08:49)
[2021-11-06] MEDS: Magnesium Oxide 400 MG TABLET PO SCH ×2 (08:49→19:15)
[2021-11-07] MEDS: Cholecalciferol (D-3) 1,000 UNIT (25MCG) TABLET PO SCH (07:36)
[2021-11-07] MEDS: Magnesium Oxide 400 MG TABLET PO SCH ×2 (07:36→20:35)
[2021-11-08] MEDS: Acetaminophen 325 MG TABLET PO PRN (00:52)
[2021-11-08] MEDS: Magnesium Oxide 400 MG TABLET PO SCH ×2 (09:25→20:02)
[2021-11-08] MEDS: Cholecalciferol (D-3) 1,000 UNIT (25MCG) TABLET PO SCH (09:25)
[2021-11-09] MEDS: Cholecalciferol (D-3) 1,000 UNIT (25MCG) TABLET PO SCH (07:49)
[2021-11-09] MEDS: Magnesium Oxide 400 MG TABLET PO SCH ×2 (07:49→19:17)
[2021-11-09] MEDS: ALPRAZolam 0.5 MG TABLET PO PRN (17:49)
[2021-11-10] MEDS: Magnesium Oxide 400 MG TABLET PO SCH ×2 (08:44→18:59)
[2021-11-10] MEDS: Cholecalciferol (D-3) 1,000 UNIT (25MCG) TABLET PO SCH (08:45)
[2021-11-10] MEDS: ALPRAZolam 0.5 MG TABLET PO PRN (18:57)
[2021-11-11] MEDS: Magnesium Oxide 400 MG TABLET PO SCH ×2 (08:32→20:32)
[2021-11-11] MEDS: Cholecalciferol (D-3) 1,000 UNIT (25MCG) TABLET PO SCH (08:32)
[2021-11-11 12:21] LABS: Adenovirus Not Detected (Not Detect); Bordetella Pertussis Not Detected (Not Detect); Chlamydophila pneumoniae Not Detected (Not Detect); Coronavirus 229E Not Detected (Not Detect); Coronavirus HKU1 Not Detected (Not Detect); Coronavirus NL63 Not Detected (Not Detect); Coronavirus OC43 Not Detected (Not Detect); Human Metapneumovirus Not Detected (Not Detect); Human Rhinovirus/Enterovirus Not Detected (Not Detect); Influenza A Subtype 2009 H1 Not Detected (Not Detect); Influenza B Not Detected (Not Detect); Mycoplasma pneumoniae Not Detected (Not Detect); Parainfluenza Virus 1 Not Detected (Not Detect); Parainfluenza Virus 2 Not Detected (Not Detect); Parainfluenza Virus 3 Not Detected (Not Detect); Parainfluenza Virus 4 Not Detected (Not Detect); Respiratory Syncytial Virus Not Detected (Not Detect)
[2021-11-11 12:24] LABS: SARS-CoV-2 DETECTED (Not Detect)
[2021-11-11 14:04] LABS: Influenza A PCR Negative (Negative); Influenza B PCR Negative (Negative); Resp. Syncytial Virus PCR Negative (Negative); SARS-CoV-2 by PCR (In House) Negative (Negative)
[2021-11-11] MEDS: ALPRAZolam 0.5 MG TABLET PO PRN (20:28)
[2021-11-11] MEDS ORDERED: Melatonin 3 MG TABLET PO ONE (21:06)
[2021-11-12 06:05] LABS: Influenza A PCR Negative (Negative); Influenza B PCR Negative (Negative); Resp. Syncytial Virus PCR Negative (Negative); SARS-CoV-2 by PCR (In House) Negative (Negative)
[2021-11-12 06:49] VITALS: BP 103/65; PULSE 96; TEMP 97.4; O2SAT 98
[2021-11-12] MEDS: Magnesium Oxide 400 MG TABLET PO SCH (09:42)
[2021-11-12] MEDS: Cholecalciferol (D-3) 1,000 UNIT (25MCG) TABLET PO SCH (09:42)
== END 2021-11-12 10:49 | DRG 682 ==
LOC: 2ANU 12:34 → EMEROOARM 12:34 → 2ANU 20:20 → 2NENU 23:23 → SUATTDRO 09-28 08:23 → 3BNU 10-07 17:07
PROVIDERS: ADMIT Pharmacist; ATTEND Internal Medicine